=== PATIENT | male | born 1995 | race Caucasian/White ===

== ENCOUNTER 2019-03-22 15:29 | Emergency (ER) | payer MEDICAID, OTHER ==
[~2019-03-22] VITALS: Ht 170.2 cm; Wt 72.3 kg
[2019-03-22 15:45] VITALS: BP 118/58
[2019-03-22 16:40] LABS: CULTURE INDICATED? YES; MICROSCOPIC INDICATED
[2019-03-22] MEDS ORDERED: AZITHROMYCIN 500 MG TABLET PO ONE (17:00)
[2019-03-22] MEDS ORDERED: CEFTRIAXONE 250 MG IM ONE (17:00)
[2019-03-22] MEDS ORDERED: CEFTRIAXONE 250 MG ONE (17:08)
[2019-03-22] MEDS ORDERED: AZITHROMYCIN 500 MG TABLET ONE (17:08)
== END 2019-03-22 17:23 | disposition home or self-care (01) ==
LOC: ED 17:05
DX: A56.01 Chlamydial cystitis and urethritis (principal); A54.01 Gonococcal cystitis and urethritis, unspecified; F17.200 Nicotine dependence, unspecified, uncomplicated; Z90.49 Acquired absence of other specified parts of digestive tract
CPT/HCPCS: 81001; 87077; 87086; 87491; 87591; 96372; 99283; J0696

== ENCOUNTER 2020-03-10 18:52 | Emergency (ER) | payer MEDICAID, OTHER ==
[~2020-03-10] VITALS: Ht 170.2 cm; Wt 77.6 kg
[2020-03-10 18:55] VITALS: BP 118/77
[2020-03-10] MEDS ORDERED: DEXAMETHASONE 4 MG/ML, 5ML ONE (19:42)
--- NOTE | 2020-03-10 19:52 | NUR ---
MEDS ADMIN PER DEC.
[2020-03-10] MEDS ORDERED: DEXAMETHASONE 4 MG/ML, 1ML PO ONE (20:00)
== END 2020-03-10 19:55 | disposition home or self-care (01) ==
LOC: ED 19:49
DX: L03.113 Cellulitis of right upper limb (principal); L03.114 Cellulitis of left upper limb; L03.116 Cellulitis of left lower limb; L03.115 Cellulitis of right lower limb; L50.1 Idiopathic urticaria; F17.200 Nicotine dependence, unspecified, uncomplicated; Z90.89 Acquired absence of other organs
CPT/HCPCS: 99283; J1100